=== PATIENT | female | born 1990 | race Caucasian/White ===

== ENCOUNTER → 2018-10-29 | Outpatient (CLI) | payer OTHER ==
[~2018-10-29] MED LIST: PROHANCE 279.3MG/ML 15ML VIAL (A9576) As Ordered ONE; PROHANCE 279.3MG/ML 5ML VIAL (A9576) As Ordered ONE
--- NOTE | 2018-11-01 09:02 | REP ---
MRA ABDOMINAL AORTA AND BILATERAL LOWER EXTREMITIES: MRA abdominal aorta and bilateral lower extremities performed utilizing 3D [id number] and intravenous administration of 35 mL ProHance with MIP reconstruction images. Abdominal aorta is normal in caliber and patent. Both common iliac arteries, internal iliac arteries, external iliac arteries, common femoral arteries, profunda arteries, superficial femoral arteries, and popliteal arteries are widely patent with no stenosis. There is venous interference in the calves limiting evaluation of the arterial structures. The peroneal arteries are widely patent bilaterally with extension into the foot bilaterally. Bilateral anterior tibial arteries are also widely patent and extend into the foot. Both posterior tibial arteries appear hypoplastic. A thin right posterior tibial artery appears to terminate in the mid calf with a similar appearance on the left. IMPRESSION: Both posterior tibial arteries appear hypoplastic and appear to terminate in the mid calf. However there is no evidence of significant arterial stenosis bilaterally. There is two-vessel runoff in to each foot. Electronically Signed by Brandon Stein MD 11/01/2018 05:36 P
== END ==
LOC: M RAD 17:07
PROVIDERS: ATTEND Surgery
DX: M79.605 Pain in left leg (principal); M79.604 Pain in right leg
CPT/HCPCS: A9576; C8914

== ENCOUNTER 2020-12-27 22:32 | Inpatient (IN) | payer OTHER ==
[~2020-12-27] VITALS: Ht 160 cm; Wt 75.0 kg
[~2020-12-27 22:32] MED LIST changes: +PRENTAB9 PO; -PROHANCE 279.3MG/ML 15ML VIAL (A9576) As Ordered ONE; -PROHANCE 279.3MG/ML 5ML VIAL (A9576) As Ordered ONE; +VITA1CHW12 PO; +[UNRECOGNIZED DRUG - CODE] PO
[2020-12-27 22:47] VITALS: BP 152/79
[2020-12-27] MEDS ORDERED: LIDOCAINE 1% MDV 20ML VIAL INFIL PRN (23:00)
[2020-12-27] MEDS ORDERED: LR 1,000 ML IV SCH (23:00)
[2020-12-27] MEDS ORDERED: OXYTOCIN DRIP 30 UNITS in IV 1 EA IV PRN (23:00)
[2020-12-27] MEDS ORDERED: PROMETHAZINE INJ 25 MG/ML VIAL (J2550) IV PRN (23:35)
[2020-12-27] MEDS ORDERED: BUTORPHANOL 2 MG/ML INJ (J0595) IV PRN (23:35)
--- NOTE | 2020-12-27 23:42 | HPEPDOC ---
Obstetrical History & Physical General Date of Admission Dec 27, 2020 at 22:58 History of Present Illness 30 yo at 38+4 weeks gestation by LMP of [id number] c/w 9+4 week US presented to L&D with the complaint of a gush of clear fluid at 2100 followed by continuous leaking and regular painful contractions. She denies any heavy bleeding. She endorses movement. Chief Complaint: LOF, term Information Provided By: Patient Age: 30 : 1 Term: 0 Pre-term: 0 Abortions: 0 Livin Care Care: Good Care Dating Final EDC: January 06, 2021 Final EDC for Daily Update: January 06, 2021 Final EDC by: LMP Antepartum Course Diagnos(e)s Anxiety/depression Exertional compartment syndrome Past Medical History Past Obstetrical History : Past Obstetrical History: Primgravida BURSAR History: No pertinent history Past Medical History Medical History Exertional compartment syndrome Depression/Anxiety Surgical History: Other (Faciotomy in lower leg, I&D) Family History Significant Family History: No pertinent family hx Social History Marital Status: Family situation: Spouse/partner home Psychosocial History: Anxiety, Depression * Smoker: non-smoker Alcohol: Denies Drugs: denies Imunizations Tdap status: current Influenza Status: current Allergies Coded Allergies: azithromycin (Verified Allergy, Unknown, 12/27/20) Medications Scheduled Ascorbic Acid/Ascorbate Sodium (Vit C-Sara Hips 500 mg Chew Tb) 500 Mg Tab.chew, 1 CHW PO BID No.137/Iron/Folic Acd ( Vitamin Tablet) 1 Each Tablet, 1 TAB PO DAILY Miscellaneous Medications Vit C/Ascorbate Calcium,Sodium (Vitamin C 500 mg/15 ml Liquid) 500 Mg/15 Ml Liq uid, 500 MG PO Physical Examination Physical Examination GENERAL: Alert and oriented times three. ABDOMEN: Gravid and non-tender to touch. FETUS: Is vertex (VTX) by sterile vaginal examination (SVE) EXTREMITIES: No edema. No clonus Grossly ruptured membranes. Clear fluid. Laboratory Data [facility]H [facility] Laboratory Tests 2 12/27/20 23:06: Serology Scanned Report Hepatitis B Testing Urine Culture: No Growth Pertinent Laboratoy Data Blood Type: O+ RBC Antibody Screen: Negative HIV: Negative Hepatitis B: Negative Hepatitis C: Unknown Rapid Plasma Reagin: Nonreactive Rubella: Immune Varicella: Immune Chlamydia/Gonorrhea: Negative Group B Streptococcus: Negative Quad Screen Test: Negative Cystic Fibrosis: Negative Glucose Tolerance Test: 98 Anatomy Ultrasound Placenta Location: Posterior Normal Anatomy: Yes Placenta Previa: No Vaginal Examination Dilation: 2cm Effacement: 50% Station: -2 Cervical Consistency: Soft Cervical Position: Middle Presentation: Cephalic presentation Position: Vertex (occiput) Assessment Heart Rate (FHR): 135 Variability: Moderate Accelerations: Positive Decelerations: None Tocometer Contractions: Yes Frequency: regular Duration: greater than 60 seconds Strength: palpated as moderate Assessment/Plan Assessment 30 yo at 38+4 weeks gestation presented with SROM and early labor. Plan Admit for expectant management of labor. Will augment as clinically indicated. Apply IV fluids. Clear liquid diet. GBS negative. Patient candidate for both IV analgesia or epidural if desired. Labs per L&D protocol. Anticipate . Labor and Delivery Counseling Vaginal / Operative vaginal delivery / C section counseling We will deliver your baby through the vagina with possible assistance of forceps or vacuum device if needed for maternal or indications. Forceps and vacuum are devices that can assist with vaginal delivery when normal pushing efforts cannot achieve delivery on their own or when delivery is needed in an emergency for baby's well-being. Medications may be required to induce or augment (help) your labor in order to achieve a vaginal delivery. An episiotomy may be required to help your baby to delivery vaginally. You may also require repair of any lacerations or tears of your vagina or vulva that are caused by delivery. In some cases, emergencies can occur that require an emergency section delivery so quickly that there may not be enough time to stop and complete consent forms for section. Understand that if this occurs, your providers will discuss the need for a section with you before they proceed with surgery. section is the delivery of your baby through an incision in your abdomen. In some situations, section may be safer to mom and baby than continuing labor and is only performed when clinically indicated. Risks of vaginal delivery include but are not limited to: Bleeding, infection, injury to the vagina, pelvic structures, injury to baby, damage to the uterus, reactions to anesthesia, uterine rupture, risk of hysterectomy for life threatening bleeding, or . Medications used to induce or augment labor may increase your risk for infection, uterine tachysystole, uterine rupture, heart rate abnormalities, need for emergency delivery or possible hysterectomy, and hemorrhage. Additional risks for use of forceps and vacuum include: increased risk of perineal and vaginal lacerations, risk of urinary or bowel incontinence, increased risk of injury to baby with bruising, scratches, hematomas on the head, or intracranial bleeding. Ms. Stewart appears to understand these risks and opts to proceed with her labor and delivery at this location. She also consents to a blood transfusion if necessary. DO JORGE Castro CHRISTOPHER J. DO Dec 27, 2020 23:42
[2020-12-27 23:55] LABS: HEMATOCRIT 34.1 % (36.0-47.0); HEMOGLOBIN 11.8 g/dl (12.0-15.5); MEAN CORPUSCULAR HEMOGLOBIN 32.8 pg (27.0-33.0); MEAN CORPUSCULAR HGB CONC 34.6 g/dl (32.0-36.5); MEAN CORPUSCULAR VOLUME 94.7 fl (80.0-96.0); PLATELET COUNT, AUTOMATED 214 10^3/uL (150-450); WHITE BLOOD COUNT 12.4 10^3/uL (4.0-10.0)
[2020-12-27] MEDS ORDERED: OXYTOCIN DRIP 30 UNITS in IV 1 EA IV SCH (23:55)
[2020-12-28] VITALS (27 sets, daily range): BP systolic 108–140; BP diastolic 59–82
[2020-12-28] MEDS ORDERED: FENTANYL 2MCG/ML ROPIVACAINE 0.2% IN 0.9% NACL 100ML IVBAG As Ordered ONE (04:34)
[2020-12-28] MEDS ORDERED: diphenhydrAMINE 50MG/ML VIAL (J1200) IV PRN (05:45)
[2020-12-28] MEDS ORDERED: EPIDURAL/PCA KEYS XX PRN (05:45)
[2020-12-28] MEDS ORDERED: ONDANSETRON 4MG/2ML VIAL IV PRN (05:45)
[2020-12-28] MEDS ORDERED: ePHEDrine SULFATE 25 MG/5 ML(5MG/ML) SYRINGE IV PRN (05:45)
[2020-12-28] MEDS ORDERED: NALOXONE INJ 0.4MG/1ML VIAL (J2310 PER 1MG) IV PRN (05:45)
[2020-12-28] MEDS ORDERED: FENTANYL/ROPIVACAINE/NACL BAG 100 ML EPIDURAL SCH (05:45)
[2020-12-28] MEDS ORDERED: REFRIGERATOR IV KEYS XX PRN (05:45)
[2020-12-28] MEDS ORDERED: LACTATED RINGER'S 1000 ML IV PRN (05:45)
[2020-12-28] MEDS ORDERED: EPIDURAL COMMENT XX SCH (05:45)
--- NOTE | 2020-12-28 07:23 | IPNPDOC ---
Text Note Date of Service The patient was seen on 12/28/20. NOTE Presented to room for assessment of progress. Veto is now comfortable with her epidural in place, however she reports feeling pressure. Chaperoned by RN Cervix: /-2. Large amount of fluid gush with exam during baby movement. FHR tracing: Cat I Pitocin currently at 6mU. Will continue to titrate to effect. Veto is progressing well. All questions answered. Bipin VS,Juan Pablo, I+O VS, Juan Pablo, I+O Laboratory Tests 12/27/20 23:47 Vital Signs Date Time Temp Pulse Resp B/P (MAP) Pulse Ox O2 Delivery O2 Flow Rate FiO2 12/28/20 06:49 80 18 120/62 (81) 12/28/20 03:36 98.8 TY PATEL DO Dec 28, 2020 07:22
[2020-12-28] MEDS ORDERED: PRENATAL VITAMINS CHEWABLE TABLET PO SCH (09:00)
--- NOTE | 2020-12-28 09:12 | IPNPDOC ---
Obstetrical Progress Note Date of Service Dec 28, 2020 Subjective Pt states feeling occasional pressure with contractions. Objective Vital Signs Date Time Temp Pulse Resp B/P (MAP) Pulse Ox O2 Delivery O2 Flow Rate FiO2 12/28/20 08:38 86 131/82 (98) 12/28/20 07:50 99.4 20 Assessment Heart Rate (FHR): 135 Variability: Moderate Accelerations: Positive Decelerations: Variable (brisk spontaneous recovery to baseline) Heart Rate Tracing: Category II (reasurring racing) Tocometer Contractions: Yes Frequency: regular (q2-4 min) Duration: greater than 60 seconds Strength: palpated as moderate Assessment and Plan Age: 30 : 1 Term: 0 Pre-term: 0 Abortions: 0 Livin EGA at Admission: 38 (+5) Status: Reassuring Group B Streptococcus: Negative Anticipate: Vaginal Delivery Additional Comments lr @125ml/hr, continue pitocin augmentation and titrate per protocol, continuous efm x2, monitor for change in or maternal status, encourage frequent maternal movement, evaluate for change as indicated, anticipate vaginal delivery. DERICK RUIZ CNM Dec 28, 2020 09:12
[2020-12-28] MEDS ORDERED: MEASLES,MUMPS,RUBELLA VACCINE INJ (MMR-II) (90707) SC SCH (10:45)
[2020-12-28] MEDS ORDERED: DOCUSATE SODIUM 100MG CAPSULE PO PRN (10:45)
[2020-12-28] MEDS ORDERED: METHYLERGONOVINE MALEATE 0.2 MG TAB PO PRN (10:45)
[2020-12-28] MEDS ORDERED: RHOGAM 300 MCG (1500 IU) INJ (J2790) IM SCH (10:45)
[2020-12-28] MEDS ORDERED: DIBUCAINE 1% OINTMENT 30GM TOP PRN (10:45)
[2020-12-28] MEDS ORDERED: OXYTOCIN DRIP 30 UNITS in IV 1 EA IV SCH (10:45)
[2020-12-28] MEDS ORDERED: ANUSOL HC CREAM 30GM TOP PRN (10:45)
--- NOTE | 2020-12-28 11:09 | DNPDOC ---
[facility] Delivery Note Delivery Note DATE OF DELIVERY: 28Dec2020 PREDELIVERY DIAGNOSIS: 38-5/7 weeks' gestation and labor. POST DELIVERY DIAGNOSIS: Delivered. PROCEDURE: Spontaneous vaginal delivery. PROCESS SAFETY SPECIALIST: Masha uRiz CNM ANESTHESIA: Epidural. ESTIMATED BLOOD LOSS: 250 mL. FINDINGS: 6 pound 6 ounce male , Score 8/9, a tight nuchal cord x1, and loose body cord x1. DELIVERY SUMMARY: Patient is a 30-year-old 1 now para 1-0-0-1 who was a dmitted to labor and delivery for labor. Pt c/o continuous increased pressure and was found to be C/C/+3. Brisk decent was made to over an intact perineum in OA presentation with restitution to ADRIANNE. The left and anterior shoulder delivered easily followed by the posterior shoulder. The infant was somersaulted towards the maternal left thigh and the cord manually reduced. The male infant was placed immediately skin to skin on the maternal abdomen where he was dried and stimulated to cry. The cord was clamped x2 after pulsation ceased and cut by the FOB. Cord blood was collected and sent for testing. Pitocin infusion was initiated per protocol. The placenta delivered spontaneously in Gordillo presentation with minimal bleeding and trailing membranes. The cervix and vagina were swept with a large portion of membrane identified and grasped with a ring forcep and gently removed. The fundus firmed immediately with massage. Examination revealed a small posterior vaginal wall laceration and right labial abrasion. The posterior vaginal wall laceration was repaired in the usual fashion using 3-[address] and the labial abrasion reapproximated with a running stitch using a 4-0 vicyl on sh. Mother and baby entered the recovery phase in stable condition with skin to skin uninterrupted and breast feeding initiated. MASHA RUIZ CNM Dec 28, 2020 11:09
[2020-12-28] MEDS: ACETAMINOPHEN TAB 650MG DOSE (2X325MG) PO PRN (16:17)
[2020-12-28] MEDS: IBUPROFEN 800 MG TAB PO PRN (20:36)
[2020-12-29 05:59] VITALS: BP 109/59
--- NOTE | 2020-12-29 07:35 | IPNPDOC ---
Progress Note Date of Service: December 29, 2020 Day#: 1 Progress Note Item Value Date Time White Blood Count 12.4 10^3/uL H 12/27/202346 Red Blood Count 3.60 10^6/uL L 12/27/202346 Hemoglobin 11.8 g/dl L 12/27/202346 Hematocrit 34.1 % L 12/27/202346 Mean Corpuscular Volume 94.7 fl 12/27/202346 Mean Corpuscular Hemoglobin 32.8 pg 12/27/202346 Mean Corpuscular Hemoglobin Concent 34.6 g/dl 12/27/202346 Red Cell Distribution Width 12.9 % 12/27/202346 Platelet Count 214 10^3/uL 12/27/202346 SUBJECT: 30-year-old 1now Para 1 status post uncomplicated spontaneous vaginal delivery at 38.5 weeks' at approximately on [NINO 12/28/20 of a male 6 pounds 6 ounces 2892 grams) with post vaginal laceration and repair, doing well day # 1. She has been ambulating, voiding spontaneously without issue and tolerating regular diet. Breast feeding without issue. Reports lochia is [like a normal period]. Patient is ambulating well. [Reports some cramping with . Denies any pain. Voiding and stooling without difficulty]. OBJECTIVE: VITAL SIGNS: Within normal limits, afebrile. Alert and oriented times three. Breath sounds clear to auscultation. Heart rate: Regular rate and rhythm, no murmurs, rubs or gallops. Abdomen: Fundus firm at U-2. Soft, NTTP. [Minimal] lochia. ASSESSMENT: 30year-old Gravida1 now Para 1 status post uncomplicated spontaneous vaginal delivery after presenting in active labor with spontaneous rupture of membranes (SROM), delivered at 38.5 weeks', doing well on day 1 . Vitals within normal limits, afebrile, hemodynamically stable with no evidence of infection. PLAN: 1. Discharge to home tomorrow 2. Tylenol and Motrin for pain. 3. Encourage breast feeding and ambulation. 4. discuss at 6 week pp check 5. Routine PP visit in 6 weeks in clinic. 6. Discussed return precautions at length. VS, I&O, 24H, Fishbone Vital Signs/I&O Vital Signs Date Time Temp Pulse Resp B/P (MAP) Pulse Ox O2 Delivery O2 Flow Rate FiO2 12/29/20 05:59 98.6 84 18 109/59 (76) 12/28/20 12:27 98 Room Air I&O- Last 24 Hours up to 6 AM 12/29/20 06:00 Intake Total 2023.6 ml Output Total 1450 ml Balance 573.6 ml Sam Chambers MD December 29, 2020 07:32
[2020-12-29] MEDS: PRENATAL VITAMINS CHEWABLE TABLET PO SCH (08:46)
[2020-12-29] MEDS: IBUPROFEN 800 MG TAB PO PRN (08:46)
[2020-12-29 17:52] VITALS: BP 111/58
[2020-12-30 06:00] VITALS: BP 122/66
[2020-12-30] MEDS: IBUPROFEN 800 MG TAB PO PRN (07:43)
--- NOTE | 2020-12-30 08:59 | OBDS ---
[facility] Obstetrical Discharge Sum. Obstetrical Discharge Summary Date: December 30, 2020 : 1 Term: 1 Pre-term: 0 Abortions: 0 Livin VDRL: ABO Blood Group (0) Rh: Positive Rubella: Immune Labor normal uncomplicated labor at term Delivery without complications Infant Sex: Male Weight: pounds (6), ounces (6) Anesthesia: Regional Anesthesia Episiotomy right labial abrasion and small posterior vaginal wall laceration with repair A/P, Post Course List any complications Admission diagnosis: labor. Discharge diagnosis: day 2 pp Condition at Discharge: stable Discharge Instructions: Home Activity:ad graciela Diet: reg Medications: @ weldon Follow-up: 6wk pp Other: f/u with in clinic December2020 DERICK RUIZ CNM December 30, 2020 08:59
[2020-12-30] MEDS: PRENATAL VITAMINS CHEWABLE TABLET PO SCH (10:02)
[2020-12-30] MEDS: ACETAMINOPHEN TAB 650MG DOSE (2X325MG) PO PRN (10:03)
--- NOTE | 2020-12-31 10:44 | IPN ---
PROGRESS NOTE DATE: 12/29/2020 SUBJECTIVE: This patient and her requested circumcision of their male infant. After discussing risks and benefits of circumcision, the medical, the nonmedical indications, the penile block and aftercare, they expressed understanding of the penile block and aftercare and bleeding, signed the consent form. All questions were answered. Twenty minute discussion. We await clearance by the medical laboratory manager. cc: Bianka ANAYA
== END 2020-12-30 11:23 | disposition home or self-care (01) | DRG 807 ==
LOC: M LDO 22:32 → M LDI 22:58 → M OBS 12-28 12:16
PROVIDERS: ADMIT Obstetrics & Gynecology; ATTEND Registered Nurse
PROC: 10D17Z9 Manual Extraction of Products of Conception, Retained, Via Natural or Artificial Opening (ICD-10-PCS; principal; 2020-12-28)
PROC: 10E0XZZ Delivery of Products of Conception, External Approach (ICD-10-PCS; 2020-12-28)
PROC: 0HQ9XZZ Repair Perineum Skin, External Approach (ICD-10-PCS; 2020-12-28)
DX: O69.81X0 Labor and delivery complicated by cord around neck, without compression, not applicable or unspecified (principal); Z37.0 Single live birth; O69.82X0 Labor and delivery complicated by other cord entanglement, without compression, not applicable or unspecified; Z3A.38 38 weeks gestation of pregnancy; O70.0 First degree perineal laceration during delivery; O73.1 Retained portions of placenta and membranes, without hemorrhage